=== PATIENT | male | born 1940 | race Caucasian/White ===

== ENCOUNTER 2020-07-14 13:33 | Inpatient (IN) | payer MEDICARE, BC ==
[~2020-07-14 13:33] MED LIST: Iopamidol-370 76% 500 ML 1 ML ONE
--- NOTE | 2020-07-14 14:47 | RAD ---
Chest AP view INDICATION: Shortness of breath and fever COMPARISON: 2 views of the chest dated July 14, 2020 FINDINGS: Lungs: Left lower lobe lung nodule appears stable. Mild left basilar atelectasis persists. Cardiac silhouette: Postoperative change consistent with prior sternotomy, CABG and left atrial appe ndage occlusion device is similar. Pulmonary vasculature: Normal Pleural spaces: There is a small left pleural effusion. Upper abdomen: No abnormality seen. Osseous structures: No acute osseous abnormality. Additional findings: None. IMPRESSION: Stable examination to the recent 2 views of the chest dated 07/14/2020. Recommendations remain the sa me as per the comparison exam.
[2020-07-14 15:02] LABS: Mean Corpuscular HGB CONC 32.8 g/dL (32.0-36.0); Mean Platelet Volume 7.8 fL (7.4-10.4); Platelet Count 110 thou/uL (130-400); RBC Distribution Width 12.1 % (11.5-14.5); Red Blood Cell (RBC) Count 3.95 mill/uL (4.70-6.10); White Blood Cell (WBC) Count 14.7 thou/uL (4.8-10.8)
[2020-07-14 15:16] LABS: Band 26 % (5-11); Lymphocytes 2 % (21-51); MDiff Complete? YES; Metamyelocyte 1 % (0-0); Monocytes 8 % (0-10); Neutrophil 62 % (42-75); Platelet Morphology Comment Appears Decreased; RBC Morphology Normal; Reactive Lymphocytes 1 % (0-10); Vacuoles SLIGHT
[2020-07-14 15:22] LABS: ALT (SGPT) 13 U/L (8-55); AST (SGOT) 18 U/L (5-34); Albumin 3.9 g/dL (3.4-4.8); Alkaline Phosphatase 65 U/L (40-110); Anion Gap 15 mmol/L (10-20); BUN (Urea Nitrogen) 22 mg/dL (8.4-25.7); Bilirubin, Total 0.7 mg/dL (0.2-1.2); Calc. Creatinine Clearance 0 mL/min (70-130); Calcium 9.3 mg/dL (7.8-10.44); Carbon Dioxide 25 mmol/L (23-31); Chloride 104 mmol/L (98-107); Globulin 2.5 g/dL (2.4-3.5); Glucose 110 mg/dL (83-110); Potassium 3.9 mmol/L (3.5-5.1); Protein, Total 6.4 g/dL (5.8-8.1); Sodium 140 mmol/L (136-145)
[2020-07-14] MEDS ORDERED: cefTRIAXone\\ROCEPHIN 2 GM VIAL ONE (16:03)
[2020-07-14] MEDS ORDERED: Acetaminophen 500 MG TAB ONE (16:03)
[2020-07-14] MEDS ORDERED: Azithromycin 500 MG VIAL ONE (16:03)
[2020-07-14] MEDS ORDERED: Vancomycin 1.5 GRAM/300 ML BAG 1.5 GM in Premix Bag 1 BAG IVPB SCH (19:30)
--- NOTE | 2020-07-14 19:46 | CT ---
CT ANGIO OF CHEST PERFORMED WITH INTRAVENOUS CONTRAST ENHANCEMENT AND 3D RECONSTRUCTIONS: 07/14/20 HISTORY: Shortness of breath. Cough. Mass noted on recent chest x-ray in the left lower lobe. There is a moderate left sided pleural effusion with left lower lobe atelectasis. Nodular density in the left baes corresponds to a pleural based mass along the anterior lateral chest wall measuring 2.5 cm in size. This is a solitary lesion. No bony destructive change is seen. No significant mediastinal or hilar adenopathy. There is good pulmonary opacification and no CT evidence for pulmonary embolus. Thoracic aorta is normal in caliber. Hypodensities within the liver, some of which are difficult to c haracterize but appears similar to the CT done in 2008 and probably represents cysts. IMPRESSION: 1. Pleural based mass along the left anterior lateral chest wall in the region of the lingula. T here is a moderate left pleural effusion noted. 2. No CT evidence for pulmonary embolus. 3. Small gallstones. POS: OLAMIDE
--- NOTE | 2020-07-14 20:24 | PDOC.BPN ---
- Brief Progress Note [id number] dictated
[2020-07-14 20:39] LABS: SARS-CoV-2 NAA Rapid Test Not Detected (NotDetected)
[2020-07-14] MEDS ORDERED: Vancomycin HCl 1 GM in Sodium Chloride 0.9% 250 ML 300 ML IVPB SCH (21:00)
--- NOTE | 2020-07-15 00:16 | HP ---
CHIEF COMPLAINT: Shortness of breath. HISTORY OF PRESENT ILLNESS: Mr. Green is an 79-year-old male with past medical history of COPD, coronary artery disease status post coronary artery bypass graft surgery, hypertension, CVA, hyperlipidemia, among others, presents to the emergency room with shortness of breath, worse with any exertion associated with fever and chills since yesterday. The patient has chronic back pain which has been worse. Workup in the emergency room: The patient had a sodium of 140, potassium 3.9, BUN is 22, creatinine 1.3. WBC 14.7, hemoglobin 13, platelets 110. Lactic acid 1.3. CTA of the chest was negative for pulmonary embolism, but it did show pleural- based mass along the left anterior chest wall in the region of the lingula. There is a moderate left pleural effusion noted. Septic workup done in the ED, started on IV antibiotics. The patient is being admitted to hospital for further management. PAST MEDICAL HISTORY: As mentioned above in history of present illness. PAST SURGICAL HISTORY: Coronary artery bypass graft surgery. SOCIAL HISTORY: The patient denies drinking or drug use. FAMILY HISTORY: Noncontributory. HOME MEDICATIONS: See home medication reconciliation form for updated medications. ALLERGIES: ALLERGIC TO ASPIRIN, IBUPROFEN. REVIEW OF SYSTEMS: Review of 14 systems negative except what is mentioned in history of present illness. PHYSICAL EXAMINATION: GENERAL: The patient is awake, alert, in moderate respiratory distress. VITAL SIGNS: Blood pressure is 144/60, respiratory rate is 24, pulse is 86, temperature is 98.5, oxygen saturation 96% on room air. HEAD AND NECK: Normocephalic, atraumatic. NECK: Supple. CHEST: Decreased air entry bilaterally. HEART: S1, S2. Regular. ABDOMEN: Soft, nontender. Bowel sounds present. NEUROLOGIC: Awake, alert, oriented. PSYCH: Unable to assess. EXTREMITIES: No clubbing, no cyanosis. GENITOURINARY: No suprapubic tenderness. No flank tenderness. LABORATORY DATA: BNP is 257. Otherwise, the rest of the labs as mentioned above in history of present illness. Troponin 0.01. CT of the chest as mentioned above in history of present illness. ASSESSMENT AND PLAN: 1. Sepsis. The patient was febrile, tachycardic, and had elevated WBC count. Source is unclear, still awaiting the urinalysis. 2. Chronic obstructive pulmonary disease with exacerbation. 3. Coronary artery disease with history of coronary artery bypass graft surgery. 4. Lung/pleural base mass. 5. Pleural effusion. 6. COVID 19 virus infection PLAN: 1. Admit. 2. Septic workup including cultures, urinalysis, to follow the results. 3. Oxygen to keep saturation more than 92%. 4. Bronchodilator scheduled as needed. 5. IV steroids. 6. To consult Pulmonary in a.m. for evaluation. Further recommendations regarding the CT findings, pleural base mass with moderate left pleural effusion. 7. Reconcile home medications. 8. DVT prophylaxis appropriate. 9. Expected length of stay, 2 midnights or more. Job ID: [id number] [facility]Carol
[2020-07-15 00:47] VITALS: BMI 17.5
[2020-07-15] MEDS: methylPREDNISolone Sod Succ 40 MG VIAL IVP SCH ×5 (02:03→20:20)
[2020-07-15] MEDS: Cefepime 1 GM in Sodium Chloride 0.9% 100 ML IVPB SCH ×4 (02:04→23:08)
[2020-07-15] MEDS ORDERED: Benzonatate 100 MG CAP PO PRN (07:42)
[2020-07-15] MEDS ORDERED: Cyclobenzaprine 10 MG TAB PO PRN (07:42)
--- NOTE | 2020-07-15 07:45 | PDOC.HOSPP ---
- Subjective Encounter Date: 07/15/20 Encounter Time: 10:15 Subjective: Patient reports some persistent cough and shortness of breath. No fever today but had chills yesterday. Left lower anterior chest with some soreness, hurts some with cough, but improved. - Objective Vital Signs & Weight: Vital Signs (12 hours) Temp Pulse Resp BP Pulse Ox 07/15/20 07:30 80 18 99 07/15/20 04:00 98.7 F 92 18 132/64 96 07/15/20 00:28 99 12 99 07/15/20 00:00 100.4 F H 95 20 153/63 H 99 Weight Weight 136 lb 10.986 oz Result Diagrams: 07/14/20 14:50 07/14/20 14:50 Hospitalist ROS - Review of Systems Constitutional: reports: chills. denies: fever Respiratory: reports: cough, shortness of breath, pleuritic pain Cardiovascular: denies: chest pain, palpitations Gastrointestinal: denies: nausea, vomiting, abdominal pain - Medication Medications: Active Medications Generic Name Dose Route Start Last Admin Trade Name Freq PRN Reason Stop Dose Admin Albuterol/Ipratropium 3 ml 07/15/20 01:00 07/15/20 07:30 Ipratropium/Albuterol Sulfate 3 Ml Neb NEB 3 ml [id number] TRACEY Administration Cefepime HCl 1 gm/ Sodium 100 mls @ 200 mls/hr 07/14/20 22:00 07/15/20 06:58 Chloride IVPB 100 mls Q8HR TRACEY Administration Methylprednisolone Sodium Succinate 40 mg 07/14/20 20:00 07/15/20 02:50 Methylprednisolone Sod Succ 40 Mg Vial IVP 40 mg 0200,0800,1400,2000 TRACEY Administration - Exam General Appearance: NAD, awake alert ENT: moist mucosa Heart: RRR, no murmur, no gallops, no rubs Respiratory: CTAB, no wheezes, no rales, no ronchi Gastrointestinal: soft, non-tender, non-distended, normal bowel sounds Psychiatric: normal affect, normal behavior, A&O x 3 Hosp A/P (1) Sepsis Code(s): A41.9 - SEPSIS, UNSPECIFIED ORGANISM Status: Acute (2) COPD exacerbation Code(s): J44.1 - CHRONIC OBSTRUCTIVE PULMONARY DISEASE W (ACUTE) EXACERBATION Status: Acute (3) Mass of left lung Code(s): R91.8 - OTHER NONSPECIFIC ABNORMAL FINDING OF LUNG FIELD Status: Acute (4) CAD (coronary artery disease) Code(s): I25.10 - ATHSCL HEART DISEASE OF [place] CORONARY ARTERY W/O ANG PCTRS Status: Chronic Plan: hx of CABG (5) HTN (hypertension) Code(s): I10 - ESSENTIAL (PRIMARY) HYPERTENSION Status: Chronic (6) History of CVA (cerebrovascular accident) Code(s): Z86.73 - PRSNL HX OF TIA (TIA), AND CEREB INFRC W/O RESID DEFICITS Status: Chronic Plan: residual right sided weakness (7) HLD (hyperlipidemia) Code(s): E78.5 - HYPERLIPIDEMIA, UNSPECIFIED Status: Chronic (8) Chronic a-fib Code(s): I48.20 - CHRONIC ATRIAL FIBRILLATION, UNSPECIFIED Status: Chronic Plan: on Eliquis - Plan On Cefepime and Azithromycin since 07/14/2020. Nebs prn. Pulmonology consult for lung mass, possibly fluid from pneumonia but will need followup, plan per Dr. Valenzuela's note is to try antibiotics for now. Blood cultures pending. DVT Proph: Eliquis GI Proph: Pepcijosseline
[2020-07-15 08:12] LABS: Bacteria/HPF 2+ HPF (None Seen); Bilirubin Negative (Negative); Blood, Urine 3+ (Negative); Clarity Clear (Clear); Glucose, Urine (Dipstick) Normal (Negative); Ketone, Urine 40 mg/dL (Negative); Leukocyte 250 Leu/uL (Negative); Nitrite Negative (Negative); Protein, Urine (Dipstick) 20 mg/dL (Neg-Trace); RBC/HPF Greater than 50 HPF (0-3); Specific Gravity, Urine 1.034 (1.002-1.036); Squamous Epithelial None Seen HPF (0-3); Urobilinogen Normal mg/dL (Less than 2); WBC/HPF Greater than 50 HPF (0-3)
[2020-07-15 08:19] LABS: Urine Culture Reflex Yes Yes
[2020-07-15] MEDS: Tamsulosin HCl 0.4 MG CAP PO SCH (08:48)
[2020-07-15] MEDS: guaiFENesin ER 600 MG TAB PO SCH ×2 (08:49→20:21)
[2020-07-15] MEDS: Apixaban 2.5 MG TAB PO SCH ×2 (08:49→20:21)
[2020-07-15] MEDS ORDERED: Non-Formulary Item 1 EACH (Cholecalciferol (Vitamin D3) [Vitamin D3] 2,000 UNIT Capsule) PO SCH (09:00)
[2020-07-15] MEDS ORDERED: Non-Formulary Item 1 EACH (Vitamin B Complex [B Complex] 1 TABLET Tablet) PO SCH (09:00)
[2020-07-15] MEDS ORDERED: Famotidine 20 MG TAB PO SCH (09:00)
[2020-07-15] MEDS ORDERED: Non-Formulary Item 1 EACH (Budesonide/Formoterol Fumarate [Budesonide-Formoterol 160-4.5] IH SCH (09:00)
[2020-07-15] MEDS: Cholecalciferol 1,000 UNITS (25 MCG) TAB PO SCH (10:12)
[2020-07-15] MEDS: Stress 600 With Zinc 1 TAB PO SCH (10:13)
--- NOTE | 2020-07-15 10:21 | CON ---
DATE OF CONSULTATION: HISTORY OF PRESENT ILLNESS: Mason Green is an 79-year-old gentleman who recently moved here from [place], [place], to stay with the son over here. Retired control systems eng. He smoked briefly, but quit smoking at 64. About a year ago, he had a bypass surgery done in [place], [place]. It was complicated by congestive heart failure. He said he had a lot of pleural effusion. They were to tap his chest, but it got better by itself. He now presents to the hospital with several-day history of cough, congestion, chills, and shortness of breath. His coronavirus test was negative. PAST MEDICAL HISTORY: Pertinent for chronic bronchitis, COPD, previous CVA, hypertension, right-sided weakness, history of chronic atrial fibrillation, rhinitis, BPH. PAST SURGICAL HISTORY: Including a bypass surgery. CHRONIC MEDICATIONS: From home include, 1. Albuterol inhaler. 2. Symbicort. 3. Eliquis 2.5. 4. Nasal spray. 5. Flomax 0.4. 6. Singulair 10. 7. Flexeril 10. ALLERGIES: IBUPROFEN. REVIEW OF SYSTEMS: Ten-point negative. PHYSICAL EXAMINATION: VITAL SIGNS: His temperature is 98, pulse 97, respiratory rate 20, saturations 96% on room air, blood pressure 130/59. GENERAL: Clinically, he is better. CHEST: Decreased breath sounds at base. No wheezing. CARDIAC: Normal S1 and S2. No gallops. ABDOMEN: Soft. LABORATORY DATA: White count 14,000; H and H 13 and 39; platelet count 110, slight left shift. So far, cultures are negative. X-ray shows a small pleural effusion, some pleural-based density that was seen on the CAT scan. ASSESSMENT: 1. Small pleural effusion. 2. Pleural-based mass, left chest. 3. Recent coronary artery bypass grafting. 4. Febrile illness. 5. Azotemia. 6. Benign prostatic hypertrophy. PLAN: The patient is on Maxipime, Zithromax, and steroids. I will continue along with the neb treatment. Obtain sputum for culture. Regarding the pleural effusion, I think this may be chronic in nature, probably secondary to his previous bypass. I would hold off any thoracentesis at this stage, unless it gets larger. Once he is symptomatically improved, I would switch him over to oral antibiotics or prednisone. We will follow. Consultation note, 70 minutes, 50% direct patient care. Job ID: [id number]
--- NOTE | 2020-07-15 13:53 | PQF ---
CLINICAL DOCUMENTATION CLARIFICATION FORM: Dear Dr. GEORGE REARDON Date: 07-15-20 Please exercise your independent, professional judgment in responding to the clarification form. Clinical indicators are provided on the bottom of this form for your review. Please check appropriate box(es) to clarify if the following diagnosis has been ruled in our ruled out: PNEUMONIA [ ] Ruled in diagnosis [ ] Continue to treat [ ] Resolved [ ] Ruled out diagnosis [ X ] Unable to determine In addition, please specify: Present on Admission (POA): [ X ] Yes [ ] No [ ] Unable to determine For continuity of documentation, please document condition throughout progress notes and discharge summary. Thank You. To be completed by CDI/Coding staff for physician review: CLINICAL INDICATORS - SIGNS / SYMPTOMS / LABS / RESULTS AND LOCATION IN MR: PN DR. REARDON 07-15-20: POSSIBLY FLUIDS FROM PNEUMONIA BUT WILL NEED FOLLOWUP, PLAN PER DR. MITCHELL NOTE IS TO TRY ANTIBIOTICS FOR NOW. TEMP: 07-15-20: 100.4 WBC: 07-14-20: 14.7 RISK FACTORS / RESULTS AND LOCATION IN MR: PN DR. REARDON 07-15-20: POSSIBLY FLUIDS FROM PNEUMONIA BUT WILL NEED FOLLOWUP, PLAN PER DR. MITCHELL NOTE IS TO TRY ANTIBIOTICS FOR NOW. TREATMENTS / RESULTS AND LOCATION IN MR: PULM CONSULT 07-15-20 MAR: 07-14-20: CEFEPIME IV, ZITHROMAX, SOLUMEDROL CDS Signature: Galilea Armando Phone #: [phone] Date: 07-14-10 This is a permanent part of the Medical Record [facility]
[2020-07-15] MEDS: Azithromycin 500 MG in Sodium Chloride 0.9% 250 ML 250 ML IVPB SCH (16:55)
[2020-07-15] MEDS: Mometasone 200 MCG/Formoterol 5 MCG 120 PUFF INHALER INH SCH (19:29)
[2020-07-15] MEDS: Montelukast Sodium 10 mg Tablet PO SCH (20:21)
[2020-07-15] MEDS ORDERED: FLU VACC QS2020-21(65YR UP)/PF 240 MCG/0.7 ML SYRINGE IM ONE (21:00)
[2020-07-16] MEDS: methylPREDNISolone Sod Succ 40 MG VIAL IVP SCH ×4 (02:29→19:58)
[2020-07-16] MEDS: Cefepime 1 GM in Sodium Chloride 0.9% 100 ML IVPB SCH ×3 (05:08→22:34)
[2020-07-16] MEDS: Mometasone 200 MCG/Formoterol 5 MCG 120 PUFF INHALER INH SCH ×2 (07:13→18:43)
[2020-07-16] MEDS: Stress 600 With Zinc 1 TAB PO SCH (08:08)
[2020-07-16] MEDS: Cholecalciferol 1,000 UNITS (25 MCG) TAB PO SCH (08:08)
[2020-07-16] MEDS: Tamsulosin HCl 0.4 MG CAP PO SCH (08:08)
[2020-07-16] MEDS: guaiFENesin ER 600 MG TAB PO SCH ×2 (08:08→19:59)
[2020-07-16] MEDS: Famotidine 20 MG TAB PO SCH (08:08)
[2020-07-16] MEDS: Apixaban 2.5 MG TAB PO SCH ×2 (08:09→19:59)
[2020-07-16] MEDS: Ipratropium Bromide 0.06% Nasal Inhaler 15ml EA NARE SCH ×4 (08:10→18:42)
--- NOTE | 2020-07-16 09:56 | PDOC.HOSPP ---
- Subjective Encounter Date: 07/16/20 Encounter Time: 09:55 Subjective: f/u for COPD exacerbation/L pleural effusion receiving Zithromax/Cefepime/Duonebs/Dulera/Singulair on RA. States feeling better overall. Less SOB. - Objective Vital Signs & Weight: Vital Signs (12 hours) Temp Pulse Resp BP BP Pulse Ox 07/16/20 08:28 98.1 F 83 18 126/44 L 96 07/16/20 07:12 85 16 98 07/16/20 04:00 97.8 F 86 20 106/57 L 98 07/16/20 00:08 92 12 97 Weight Admit Weight 136 lb 11.2 oz Weight 136 lb 10.986 oz I&O: 07/15/20 07/16/20 07/17/20 06:59 06:59 06:59 Intake Total 1970 Output Total 600 Balance 1370 Result Diagrams: 07/14/20 14:50 07/14/20 14:50 Additional Labs: Microbiology 07/15/20 14:30 Sputum Respiratory Culture - Final 07/14/20 15:30 Venous blood - Right Arm Blood Culture - Preliminary Specimen has been received and culture in progress. No Growth to date. 07/14/20 15:30 Venous blood - Left Arm Blood Culture - Preliminary Specimen has been received and culture in progress. No Growth to date. Laboratory Tests 07/14/20 07/14/20 07/14/20 14:50 14:50 19:18 Lactic Acid 1.3 B-Natriuretic Peptide 257.2 H Influenza A RNA INAAT Not Detected Influenza B RNA INAAT Not Detected SARS-CoV-2 Rap RNA(RT-PCR) Not Detected Microbiology 07/14/20 13:10 Urine clean catch Urine Culture - Final Radiology Reviewed by me: Yes (CTA chest - L pleural based mass with effusion) Hospitalist ROS - Medication Medications: Active Medications Generic Name Dose Route Start Last Admin Trade Name Freq PRN Reason Stop Dose Admin Albuterol/Ipratropium 3 ml 07/15/20 01:00 07/16/20 07:12 Ipratropium/Albuterol Sulfate 3 Ml Neb NEB 3 ml [id number] TRACEY Administration Apixaban 2.5 mg 07/15/20 09:00 07/16/20 08:09 Apixaban 2.5 Mg Tab PO 2.5 mg BID TRACEY Administration Cholecalciferol 2,000 units 07/15/20 09:00 07/16/20 08:08 Cholecalciferol 1,000 Units (25 Mcg) Tab PO 2,000 units DAILY TRACEY Administration Famotidine 20 mg 07/16/20 09:00 07/16/20 08:08 Famotidine 20 Mg Tab PO 20 mg DAILY TRACEY Administration Guaifenesin 600 mg 07/15/20 09:00 07/16/20 08:08 Guaifenesin Er 600 Mg Tab PO 600 mg BID TRCAEY Administration Cefepime HCl 1 gm/ Sodium 100 mls @ 200 mls/hr 07/14/20 22:00 07/16/20 05:08 Chloride IVPB 100 mls Q8HR TRACEY Administration Azithromycin 500 mg/ Sodium 250 mls @ 250 mls/hr 07/15/20 16:00 07/15/20 16:55 Chloride IVPB 250 mls 1600 TRACEY Administration Ipratropium Gregory 0 ml 07/15/20 12:30 07/16/20 08:11 Ipratropium Gregory 0.06% Nasal Inhaler 15ml EA NARE Not Given TID-RT [facility] Methylprednisolone Sodium Succinate 40 mg 07/14/20 20:00 07/16/20 08:09 Methylprednisolone Sod Succ 40 Mg Vial IVP 40 mg 0200,0800,1400,2000 TRACEY Administration Mometasone Furoate/Formoterol Fumar 2 puff 07/15/20 18:30 07/16/20 07:13 Mometasone 200 Mcg/Formoterol 5 Mcg 120 Puff Inhaler INH 2 puff BID-RT TRACEY Administration Montelukast Sodium 10 mg 07/15/20 21:00 07/15/20 20:21 Montelukast Sodium 10 Mg Tablet PO 10 mg QPM TRACEY Administration Multivitamins/Zinc 1 tab 07/15/20 09:00 07/16/20 08:08 Stress 600 With Zinc 1 Tab PO 1 tab DAILY TRACEY Administration Tamsulosin HCl 0.4 mg 07/15/20 09:00 07/16/20 08:08 Tamsulosin Hcl 0.4 Mg Cap PO 0.4 mg DAILY TRACEY Administration - Exam General Appearance: NAD, awake alert Eye: PERRL, anicteric sclera ENT: normocephalic atraumatic, no oropharyngeal lesions Neck: supple, symmetric, no JVD, no thyromegaly, no lymphadenopathy Heart: RRR, no gallops, no rubs, normal peripheral pulses Heart - other findings: S1, S2 Respiratory: no wheezes, no tachypnea Respiratory - other findings: diminished in L base, occ rhonchi Gastrointestinal: soft, non-tender, non-distended, normal bowel sounds, no palpable masses Extremities: no cyanosis, no clubbing, no edema Skin: normal turgor Neurological: cranial nerve grossly intact, no new deficit Musculoskeletal: normal tone, normal strength Psychiatric: normal affect, A&O x 3 Hosp A/P (1) Sepsis Code(s): A41.9 - SEPSIS, UNSPECIFIED ORGANISM Status: Acute Plan: Suspected due to LLL infiltrate/?PNA with parapneumonic effusion, continue Cefepime/Zithromax, resolved (2) COPD exacerbation Code(s): J44.1 - CHRONIC OBSTRUCTIVE PULMONARY DISEASE W (ACUTE) EXACERBATION Status: Acute Plan: Continue Solumedrol/Duonebs/Cefepime/Zithromax/Dulera/Singulair, stable (3) Mass of left lung Code(s): R91.8 - OTHER NONSPECIFIC ABNORMAL FINDING OF LUNG FIELD Status: Acute Plan: ? mass vs infectious process, continue IV abx, Pulmonology consulted (4) CAD (coronary artery disease) Code(s): I25.10 - ATHSCL HEART DISEASE OF [place] CORONARY ARTERY W/O ANG PCTRS Status: Chronic Plan: Continue ASA/Eliquis (5) Chronic a-fib Code(s): I48.20 - CHRONIC ATRIAL FIBRILLATION, UNSPECIFIED Status: Chronic (6) HTN (hypertension) Code(s): I10 - ESSENTIAL (PRIMARY) HYPERTENSION Status: Chronic Qualifiers: Hypertension type: essential hypertension Qualified Code(s): I10 - Es sential (primary) hypertension - Plan continue antibiotics, high school social studies tutor, respiratory therapy, out of bed/ambulate, DVT proph w/SCDs Stable overall Continue Cefepime/Zithromax Continue Solumedrol another 24h OOB/ambulate AM lab: BMP, CBC Likely home in 24h
[2020-07-16] MEDS: Azithromycin 500 MG in Sodium Chloride 0.9% 250 ML 250 ML IVPB SCH (15:00)
[2020-07-16] MEDS ORDERED: Acetaminophen 500 MG TAB PO PRN (18:55)
[2020-07-16] MEDS: diphenhydrAMINE 25 MG CAP PO SCH (19:59)
[2020-07-16] MEDS: Montelukast Sodium 10 mg Tablet PO SCH (19:59)
[2020-07-17] MEDS: methylPREDNISolone Sod Succ 40 MG VIAL IVP SCH ×2 (02:42→08:44)
[2020-07-17] MEDS: Cefepime 1 GM in Sodium Chloride 0.9% 100 ML IVPB SCH (05:18)
[2020-07-17 05:56] LABS: #Lymphocytes 0.3 thou/uL (1.20-3.40); #Monocytes 0.3 thou/uL (0.11-0.59); #Neutrophils 8.8 thou/uL (1.40-6.50); %Lymphocytes 2.8 % (21.0-51.0); %Monocytes 2.6 % (0.0-10.0); %Neutrophils 94.5 % (42.0-75.0); Hemoglobin 11.2 g/dL (14.0-18.0); Mean Corpuscular HGB CONC 33.4 g/dL (32.0-36.0); Mean Corpuscular Hemoglobin 33.1 pg (27.0-31.0); Mean Corpuscular Volume 99.2 fL (78.0-98.0); Mean Platelet Volume 8.3 fL (7.4-10.4); Platelet Count 97 thou/uL (130-400); RBC Distribution Width 12.4 % (11.5-14.5); Red Blood Cell (RBC) Count 3.37 mill/uL (4.70-6.10); White Blood Cell (WBC) Count 9.3 thou/uL (4.8-10.8)
[2020-07-17 06:11] LABS: Anion Gap 13 mmol/L (10-20); BUN (Urea Nitrogen) 29 mg/dL (8.4-25.7); Calc. Creatinine Clearance 51 mL/min (70-130); Calcium 8.3 mg/dL (7.8-10.44); Carbon Dioxide 19 mmol/L (23-31); Chloride 111 mmol/L (98-107); Glucose 150 mg/dL (83-110); Potassium 3.9 mmol/L (3.5-5.1); Sodium 139 mmol/L (136-145)
[2020-07-17] MEDS: Mometasone 200 MCG/Formoterol 5 MCG 120 PUFF INHALER INH SCH (07:29)
[2020-07-17 07:54] VITALS: BP 108/50; TEMP 97.3
[2020-07-17] MEDS: diphenhydrAMINE 25 MG CAP PO SCH (08:43)
[2020-07-17] MEDS: Stress 600 With Zinc 1 TAB PO SCH (08:44)
[2020-07-17] MEDS: Ipratropium Bromide 0.06% Nasal Inhaler 15ml EA NARE SCH (08:44)
[2020-07-17] MEDS: guaiFENesin ER 600 MG TAB PO SCH (08:44)
[2020-07-17] MEDS: Famotidine 20 MG TAB PO SCH (08:44)
[2020-07-17] MEDS: Tamsulosin HCl 0.4 MG CAP PO SCH (08:44)
[2020-07-17] MEDS: Apixaban 2.5 MG TAB PO SCH (08:44)
[2020-07-17] MEDS: Cholecalciferol 1,000 UNITS (25 MCG) TAB PO SCH (08:44)
[2020-07-17] MEDS ORDERED: Aspirin 81 mg Enteric Coated Tablet PO SCH (09:00)
--- NOTE | 2020-07-18 09:00 | DIS ---
DATE OF ADMISSION: 07/15/2020 DATE OF DISCHARGE: 07/17/2020 DISCHARGE DIAGNOSES: 1. Chronic obstructive pulmonary disease exacerbation, suspected resolving. 2. Mass of the left lung, suspected. 3. Sepsis, questionable left lower lobe infiltrate versus mass. 4. Coronary artery disease, chronic and stable. 5. Hypertension, stable. 6. Chronic atrial fibrillation, on chronic anticoagulation with Eliquis. CONSULTATIONS: Dr. Valenzuela with Pulmonology Service. PERTINENT LABORATORY AND X-RAY FINDINGS: Creatinine ranged between 1.02 to 1.34. Lactic acid level 1.3. BNP 257. CBC showed a white blood cell count ranging between 9.3 to 14.7, hemoglobin ranged between 11.2 to 13.0, platelet count ranged between 97 to 110. Influenza A and B negative on 07/14/2020. COVID-19 PCR not detected on 07/14/2020. Blood cultures x2 dated 07/14/2020, showed no growth at 48 hours. Respiratory culture showed saliva. Portable chest x-ray dated 07/14/2020, showed left lower lobe lung nodule. Mild left basilar atelectasis. CT angiogram of the chest dated 07/14/2020, showed no evidence for pulmonary embolus. Pleural base mass along the left anterolateral chest wall in the region of the lingula. Moderate left pleural effusion. HOSPITAL COURSE: The patient was initially admitted after presenting with increased shortness of breath in the context of chronic obstructive pulmonary disease. The patient was placed on IV Solu-Medrol and given bronchodilator therapy with DuoNeb. The patient was also placed on azithromycin and cefepime for suspected infectious process. Chest imaging did show evidence of a left pleural based mass of unclear significance with associated moderate left pleural effusion. The patient was evaluated by the Pulmonology Service with recommendations to treat underlying infectious process and monitor clinical response. The patient rapidly clinically improved with general pulmonary supportive management including Solu-Medrol. The patient received bronchodilator therapy and overall remained clinically stable. The patient did not require oxygen supplementation and overall was clinically stable without fever. I have examined the patient at the time of discharge and discussed followup instructions. The patient verbalizes understanding and agreement, ready for discharge on 07/17/2020. DISCHARGE MEDICATIONS: 1. Azithromycin 500 mg p.o. daily x7 days. 2. Prednisone 20 mg two tablets p.o. daily x3 days, followed by one tablet p.o. daily x3 days, followed by half a tablet p.o. daily x3 days. 3. Vitamin D3 of 2000 units p.o. daily. 4. Singulair 10 mg p.o. at bedtime. 5. ProAir Digihaler 90 mcg inhaled b.i.d. 6. Pepcid 20 mg p.o. b.i.d. 7. Mucinex 600 mg p.o. b.i.d. 8. Flomax 0.4 mg p.o. daily. 9. Flexeril 10 mg p.o. t.i.d. p.r.n. 10. Eliquis 2.5 mg p.o. b.i.d. 11. Budesonide/formoterol fumarate 10.2 g inhaled b.i.d. 12. Benadryl 50 mg p.o. b.i.d. 13. Vitamin B complex one tablet p.o. daily. 14. Atrovent 0.06% nasal spray 2 sprays in each naris t.i.d. 15. Enteric-coated aspirin 81 mg p.o. daily. FOLLOWUP: The patient may follow up with his primary care provider, Dr. Luis Eduardo Powell. The patient may follow up with Dr. Valenzuela with Pulmonology Service within 2 weeks. CONDITION ON DISCHARGE: Stable. ACTIVITY: Ad-elder. DIET: Heart healthy. CODE STATUS: Full. DISPOSITION: To home, 07/17/2020. TIME SPENT: Total time preparing and coordinating discharge is 35 minutes. Job ID: [id number]
== END 2020-07-17 11:25 | disposition home or self-care (01) | DRG 871 ==
LOC: ERS 13:33 → T4-A 18:43 → OBSVTOIN 07-15 07:41
PROVIDERS: ADMIT Internal Medicine; ATTEND Emergency Medicine
DX: A41.9 Sepsis, unspecified organism (principal); J18.9 Pneumonia, unspecified organism; J44.1 Chronic obstructive pulmonary disease with (acute) exacerbation; B37.0 Candidal stomatitis; I48.20 Chronic atrial fibrillation, unspecified; J90 Pleural effusion, not elsewhere classified; J98.11 Atelectasis; I10 Essential (primary) hypertension; I25.10 Atherosclerotic heart disease of native coronary artery without angina pectoris; Z88.6 Allergy status to analgesic agent; N40.0 Benign prostatic hyperplasia without lower urinary tract symptoms; Z86.73 Personal history of transient ischemic attack (TIA), and cerebral infarction without residual deficits; E78.5 Hyperlipidemia, unspecified; Z95.1 Presence of aortocoronary bypass graft; Z79.82 Long term (current) use of aspirin; Z79.01 Long term (current) use of anticoagulants; Z79.899 Other long term (current) drug therapy; Z79.51 Long term (current) use of inhaled steroids; R91.8 Other nonspecific abnormal finding of lung field; Z20.828 Contact with and (suspected) exposure to other viral communicable diseases
CPT/HCPCS: 0240U; 36415; 71045; 71275; 80048; 80053; 81001; 83605; 83880; 84484; 85025; 87040; 87070; 87086; 87205; 87635; 90471; 90662; 90732; 93005; 94640; 96365; 96366; 96367; 96375; 96376; G0008; G0009; G0378; J0456; J0692; J0696; J2920; J3370; J3490; J7050; J7620; Q0163; Q9967; U0003

== ENCOUNTER 2020-10-20 12:19 | Outpatient (CLI) | payer MEDICARE, BC | END 2020-10-20 12:20 | disposition home or self-care (01) | LOC: BICRAD 12:19 | PROVIDERS: ATTEND Internal Medicine Pulmonary Disease | DX: R06.00 Dyspnea, unspecified (principal) | CPT/HCPCS: 71046 ==

== ENCOUNTER 2021-12-27 17:19 | Observation (INO) | payer MEDICARE, BC ==
[2021-12-27 17:45] LABS: #Eosinphils 0.1 thou/uL (0.0-0.7); #Lymphocytes 1.6 thou/uL (1.20-3.40); #Monocytes 0.6 thou/uL (0.11-0.59); #Neutrophils 5.3 thou/uL (1.40-6.50); %Basophils 0.1 % (0.0-1.0); %Eosinophils 1.9 % (0.0-10.0); %Lymphocytes 20.5 % (21.0-51.0); %Neutrophils 69.4 % (42.0-75.0); Hemoglobin 13.8 g/dL (14.0-18.0); Mean Corpuscular HGB CONC 32.1 g/dL (32.0-36.0); Mean Corpuscular Hemoglobin 32.4 pg (27.0-31.0); Mean Platelet Volume 8.3 fL (7.4-10.4); Platelet Count 142 thou/uL (130-400); Red Blood Cell (RBC) Count 4.27 mill/uL (4.70-6.10); White Blood Cell (WBC) Count 7.6 thou/uL (4.8-10.8)
[2021-12-27 18:09] LABS: ALT (SGPT) Less than 7 U/L (8-55); AST (SGOT) 13 U/L (5-34); Alkaline Phosphatase 75 U/L (40-110); Anion Gap 13 mmol/L (10-20); BUN (Urea Nitrogen) 14 mg/dL (8.4-25.7); Bilirubin, Total 0.7 mg/dL (0.2-1.2); Calc. Creatinine Clearance 0 mL/min (70-130); Calcium 9.3 mg/dL (7.8-10.44); Carbon Dioxide 25 mmol/L (23-31); Chloride 106 mmol/L (98-107); Globulin 3.1 g/dL (2.4-3.5); Glucose 76 mg/dL (83-110); Potassium 3.8 mmol/L (3.5-5.1); Protein, Total 7.1 g/dL (5.8-8.1); Sodium 140 mmol/L (136-145)
[2021-12-27 20:41] VITALS: BMI 19.1
[2021-12-27] MEDS ORDERED: Nitroglycerin 0.4 MG TAB (25 Tab Bottle) SL PRN (21:01)
[2021-12-27] MEDS ORDERED: Ondansetron PF 4 MG/2 ML Vial IVP PRN (21:01)
[2021-12-27] MEDS ORDERED: Acetaminophen 325 MG TAB PO PRN (21:01)
[2021-12-27] MEDS ORDERED: Acetaminophen 650 MG Suppository PR PRN (21:01)
[2021-12-27] MEDS ORDERED: Ondansetron ODT 4 MG TAB PO PRN (21:01)
[2021-12-27] MEDS ORDERED: Benzonatate 100 MG CAP PO PRN (21:06)
[2021-12-27 21:25] LABS: Troponin I Less than 0.010 ng/mL (< 0.028)
[2021-12-28 00:13] LABS: Troponin I Less than 0.010 ng/mL (< 0.028)
[2021-12-28 05:48] LABS: #Eosinphils 0.2 thou/uL (0.0-0.7); #Lymphocytes 1.5 thou/uL (1.20-3.40); #Monocytes 0.6 thou/uL (0.11-0.59); #Neutrophils 3.5 thou/uL (1.40-6.50); %Basophils 0.2 % (0.0-1.0); %Eosinophils 2.8 % (0.0-10.0); %Lymphocytes 25.4 % (21.0-51.0); %Neutrophils 60.6 % (42.0-75.0); Hemoglobin 12.3 g/dL (14.0-18.0); Mean Corpuscular HGB CONC 32.5 g/dL (32.0-36.0); Mean Corpuscular Hemoglobin 32.5 pg (27.0-31.0); Mean Platelet Volume 8.5 fL (7.4-10.4); Platelet Count 123 thou/uL (130-400); RBC Distribution Width 13.1 % (11.5-14.5); Red Blood Cell (RBC) Count 3.77 mill/uL (4.70-6.10); White Blood Cell (WBC) Count 5.7 thou/uL (4.8-10.8)
[2021-12-28 06:12] LABS: Anion Gap 10 mmol/L (10-20); BUN (Urea Nitrogen) 16 mg/dL (8.4-25.7); Calc. Creatinine Clearance 49 mL/min (70-130); Calcium 8.9 mg/dL (7.8-10.44); Carbon Dioxide 24 mmol/L (23-31); Chloride 110 mmol/L (98-107); Glucose 87 mg/dL (83-110); Sodium 140 mmol/L (136-145)
[2021-12-28] MEDS: Mometasone 100 MCG/PUFF (1 INHALER) INH SCH ×2 (06:41→19:08)
[2021-12-28] MEDS: Famotidine 20 MG TAB PO SCH ×2 (08:42→21:51)
[2021-12-28] MEDS: Ipratropium Bromide 0.06% Nasal Inhaler 15ml EA NARE SCH ×3 (08:46→21:51)
[2021-12-28] MEDS: Tamsulosin HCl 0.4 MG CAP PO SCH (08:50)
[2021-12-28] MEDS ORDERED: Aspirin Chewable 81 MG TAB PO SCH (09:00)
[2021-12-28 14:19] LABS: SARS-CoV-2 PCR by NAA Not Detected (NotDetected)
[2021-12-29] MEDS: Mometasone 100 MCG/PUFF (1 INHALER) INH SCH (06:35)
[2021-12-29] MEDS: Famotidine 20 MG TAB PO SCH (08:46)
[2021-12-29] MEDS: Ipratropium Bromide 0.06% Nasal Inhaler 15ml EA NARE SCH (08:47)
[2021-12-29] MEDS: Tamsulosin HCl 0.4 MG CAP PO SCH (08:52)
[2021-12-29] MEDS ORDERED: Atorvastatin Calcium 20 MG TAB PO SCH (09:00)
[2021-12-29 11:34] VITALS: BP 138/64; TEMP 97.3
== END 2021-12-29 15:23 | disposition home or self-care (01) ==
LOC: ERS 17:19 → 2SW 18:38
PROVIDERS: ADMIT Internal Medicine; ATTEND Internal Medicine
DX: R07.89 Other chest pain (principal); I48.0 Paroxysmal atrial fibrillation; J44.9 Chronic obstructive pulmonary disease, unspecified; R91.1 Solitary pulmonary nodule; D53.9 Nutritional anemia, unspecified; J90 Pleural effusion, not elsewhere classified; I25.10 Atherosclerotic heart disease of native coronary artery without angina pectoris; I11.9 Hypertensive heart disease without heart failure; E78.5 Hyperlipidemia, unspecified; K80.20 Calculus of gallbladder without cholecystitis without obstruction; I08.1 Rheumatic disorders of both mitral and tricuspid valves; Z86.73 Personal history of transient ischemic attack (TIA), and cerebral infarction without residual deficits; Z79.01 Long term (current) use of anticoagulants; Z79.899 Other long term (current) drug therapy; Z88.6 Allergy status to analgesic agent; Z88.8 Allergy status to other drugs, medicaments and biological substances; Z95.1 Presence of aortocoronary bypass graft; Z95.818 Presence of other cardiac implants and grafts; Z20.822 Contact with and (suspected) exposure to COVID-19
CPT/HCPCS: 71045; 71275; 80048; 80053; 83880; 84484 ×2; 85025 ×2; 93005; 93306; 94640 ×3; 94760; 99285; U0003; U0005; 36415; G0378; J7620; Q9967

== ENCOUNTER 2022-04-12 18:31 | Observation (INO) | payer MEDICARE, BC ==
[2022-04-12 19:38] LABS: #Eosinphils 0.1 thou/uL (0.0-0.7); #Lymphocytes 1.3 thou/uL (1.20-3.40); #Monocytes 0.7 thou/uL (0.11-0.59); #Neutrophils 3.6 thou/uL (1.40-6.50); %Basophils 0.6 % (0.0-1.0); %Eosinophils 2.4 % (0.0-10.0); %Monocytes 11.4 % (0.0-10.0); %Neutrophils 63.6 % (42.0-75.0); Hemoglobin 12.2 g/dL (14.0-18.0); Mean Corpuscular Hemoglobin 33.5 pg (27.0-31.0); Mean Platelet Volume 7.5 fL (7.4-10.4); Platelet Count 137 thou/uL (130-400); RBC Distribution Width 12.5 % (11.5-14.5); Red Blood Cell (RBC) Count 3.64 mill/uL (4.70-6.10); White Blood Cell (WBC) Count 5.7 thou/uL (4.8-10.8)
[2022-04-12 19:51] LABS: ALT (SGPT) Less than 7 U/L (8-55); AST (SGOT) 10 U/L (5-34); Acetaminophen Less than 10.0 mcg/mL (10.0-30.0); Albumin 3.7 g/dL (3.4-4.8); Alcohol Less than 10 mg/dL (Less than 10); Alkaline Phosphatase 72 U/L (40-110); Anion Gap 14 mmol/L (10-20); BUN (Urea Nitrogen) 19 mg/dL (8.4-25.7); Bilirubin, Total 0.6 mg/dL (0.2-1.2); CK (CPK) 26 U/L (30-200); Calc. Creatinine Clearance 0 mL/min (70-130); Calcium 9.4 mg/dL (7.8-10.44); Carbon Dioxide 24 mmol/L (23-31); Chloride 108 mmol/L (98-107); Estimated GFR 69; Globulin 2.7 g/dL (2.4-3.5); Glucose 87 mg/dL (83-110); Potassium 4.1 mmol/L (3.5-5.1); Protein, Total 6.4 g/dL (5.8-8.1); Salicylate Less than 8.0 mg/dL (15.0-30.0); Sodium 142 mmol/L (136-145)
[2022-04-12] MEDS ORDERED: Aspirin Chewable 81 MG TAB ONE (20:09)
[2022-04-12 21:55] LABS: SARS-CoV-2 NAA Rapid Test Not Detected (NotDetected)
[2022-04-12] MEDS ORDERED: Acetaminophen 325 MG TAB PO PRN (22:04)
[2022-04-13 01:52] VITALS: BMI 19.6
[2022-04-13 05:05] LABS: #Eosinphils 0.1 thou/uL (0.0-0.7); #Lymphocytes 1.1 thou/uL (1.20-3.40); #Monocytes 0.6 thou/uL (0.11-0.59); #Neutrophils 2.7 thou/uL (1.40-6.50); %Basophils 0.2 % (0.0-1.0); %Eosinophils 3.3 % (0.0-10.0); %Lymphocytes 24.4 % (21.0-51.0); %Neutrophils 58.1 % (42.0-75.0); Hemoglobin 11.4 g/dL (14.0-18.0); Mean Corpuscular HGB CONC 33.2 g/dL (32.0-36.0); Mean Corpuscular Hemoglobin 33.6 pg (27.0-31.0); Mean Platelet Volume 7.4 fL (7.4-10.4); Platelet Count 129 thou/uL (130-400); RBC Distribution Width 12.4 % (11.5-14.5); Red Blood Cell (RBC) Count 3.39 mill/uL (4.70-6.10); White Blood Cell (WBC) Count 4.6 thou/uL (4.8-10.8)
[2022-04-13 05:32] LABS: Anion Gap 12 mmol/L (10-20); BUN (Urea Nitrogen) 17 mg/dL (8.4-25.7); Calc. Creatinine Clearance 60 mL/min (70-130); Calcium 8.8 mg/dL (7.8-10.44); Carbon Dioxide 23 mmol/L (23-31); Cardiac Risk 2.7 (Less than 4.5); Chloride 112 mmol/L (98-107); Cholesterol 103 mg/dl (< 200 Desired); Estimated GFR 86; Glucose 94 mg/dL (83-110); HDL Cholesterol 38 mg/dL (>60 Neg Risk); LDL Cholesterol, Calculated 56 mg/dL; Potassium 3.7 mmol/L (3.5-5.1); Sodium 143 mmol/L (136-145); Triglycerides 47 mg/dL (Less than 150)
[2022-04-13] MEDS ORDERED: Non-Formulary Item 1 EACH (Fluticasone/Umeclidin/Vilanter [Trelegy Ellipta 200-62.5-25] 1 IH SCH (09:00)
[2022-04-13] MEDS ORDERED: Non-Formulary Item 1 EACH (Ipratropium/Albuterol Sulfate [Combivent Respimat] 120 PUFF In INH SCH (09:00)
[2022-04-13] MEDS ORDERED: Famotidine 20 MG TAB PO SCH (09:00)
[2022-04-13] MEDS ORDERED: Apixaban 2.5 MG TAB PO SCH (09:00)
[2022-04-13] MEDS ORDERED: Aspirin 81 mg Enteric Coated Tablet PO SCH (09:00)
[2022-04-13] MEDS ORDERED: Tamsulosin HCl 0.4 MG CAP PO SCH (09:00)
[2022-04-13] MEDS ORDERED: Ipratropium Bromide 0.06% Nasal Inhaler 15ml EA NARE SCH ×2 (09:00→15:00)
[2022-04-13 12:18] VITALS: TEMP 97.9
[2022-04-13 14:54] VITALS: BP 145/80
[2022-04-13] MEDS ORDERED: Ipratropium/Albuterol Sulfate 4 GM AER IH SCH (18:30)
[2022-04-13] MEDS ORDERED: Mometasone 100 MCG/PUFF (1 INHALER) INH SCH (18:30)
[2022-04-13] MEDS ORDERED: Atorvastatin Calcium 40 MG TAB PO SCH (21:00)
== END 2022-04-13 18:11 | disposition home health service (06) ==
LOC: ERS 18:31 → NEURO 20:52
PROVIDERS: ADMIT Internal Medicine; ATTEND Internal Medicine
DX: R53.1 Weakness (principal); R51.9 Headache, unspecified; I48.0 Paroxysmal atrial fibrillation; I25.10 Atherosclerotic heart disease of native coronary artery without angina pectoris; I10 Essential (primary) hypertension; E78.5 Hyperlipidemia, unspecified; J44.9 Chronic obstructive pulmonary disease, unspecified; G89.29 Other chronic pain; M54.50 Low back pain, unspecified; D53.9 Nutritional anemia, unspecified; N40.0 Benign prostatic hyperplasia without lower urinary tract symptoms; I69.351 Hemiplegia and hemiparesis following cerebral infarction affecting right dominant side; Z79.01 Long term (current) use of anticoagulants; Z79.2 Long term (current) use of antibiotics; Z79.82 Long term (current) use of aspirin; Z79.899 Other long term (current) drug therapy; Z88.6 Allergy status to analgesic agent; Z88.8 Allergy status to other drugs, medicaments and biological substances; Z95.1 Presence of aortocoronary bypass graft; Z95.818 Presence of other cardiac implants and grafts; Z20.822 Contact with and (suspected) exposure to COVID-19
CPT/HCPCS: 70450; 70551; 72170; 80048; 80061; 80307; 82550; 83690; 83880; 84443; 84484; 85025; 93005; 97116; 99285; G0378 ×3; U0002; 36415; 80053

== ENCOUNTER 2023-10-25 11:42 | Emergency (ER) | payer MEDICARE, BC ==
[2023-10-25 12:28] LABS: #Basophils Less than 0.03 10x3/uL (0.0-0.2); %Basophils 0.1 % (0.0-1.0); %Eosinophils 0.3 % (0.0-10.0); %Lymphocytes 8.1 % (21.0-51.0); %Neutrophils 74.7 % (42.0-75.0); Hemoglobin 10.2 g/dL (14.0-18.0); Mean Corpuscular HGB CONC 31.9 g/dL (32.0-36.0); Mean Corpuscular Hemoglobin 31.5 pg (27.0-31.0); Mean Corpuscular Volume 98.8 fl (78.0-98.0); Mean Platelet Volume 11.3 fL (7.4-10.4); Platelet Count 144 10x3/uL (130-400); Red Blood Cell (RBC) Count 3.24 mill/uL (4.70-6.10)
[2023-10-25 12:44] LABS: ALT (SGPT) 82 U/L (8-55); AST (SGOT) 27 U/L (5-34); Albumin 3.9 g/dL (3.4-4.8); Alkaline Phosphatase 166 U/L (40-110); Anion Gap 18 mmol/L (10-20); BUN (Urea Nitrogen) 49 mg/dL (8.4-25.7); Bilirubin, Total 1.5 mg/dL (0.2-1.2); Calc. Creatinine Clearance 0 mL/min (70-130); Calcium 10.1 mg/dL (7.8-10.44); Carbon Dioxide 21 mmol/L (23-31); Chloride 107 mmol/L (98-107); Estimated GFR 44; Globulin 3.3 g/dL (2.4-3.5); Glucose 109 mg/dL (83-110); Potassium 4.6 mmol/L (3.5-5.1); Protein, Total 7.2 g/dL (5.8-8.1); Sodium 141 mmol/L (136-145)
[2023-10-25 12:45] LABS: Troponin I Less than 0.010 ng/mL (< 0.028)
[2023-10-25 16:05] LABS: Bacteria/HPF 4+ HPF (None Seen); Bilirubin Negative (Negative); Blood, Urine 3+ (Negative); CAUTI Indications for Culture Dysuria,urgency,freq; Clarity Extra Turbid (Clear); Glucose, Urine (Dipstick) Normal (Negative); Ketone, Urine 60 mg/dL (Negative); Leukocyte 500 Leu/uL (Negative); Nitrite Negative (Negative); Protein, Urine (Dipstick) 200 mg/dL (Neg-Trace); RBC/HPF Greater than 50 HPF (0-3); Specific Gravity, Urine 1.012 (1.002-1.036); Squamous Epithelial None Seen HPF (0-3); Urobilinogen Normal mg/dL (Less than 2); WBC/HPF Greater than 50 HPF (0-3)
[2023-10-25 16:07] LABS: Urine Culture Reflex Yes Yes
== END 2023-10-25 15:07 | disposition home or self-care (01) ==
LOC: ERS 11:42
DX: J18.9 Pneumonia, unspecified organism (principal); R31.9 Hematuria, unspecified; I25.10 Atherosclerotic heart disease of native coronary artery without angina pectoris; I10 Essential (primary) hypertension; J44.9 Chronic obstructive pulmonary disease, unspecified; I48.91 Unspecified atrial fibrillation; Z79.82 Long term (current) use of aspirin; Z79.899 Other long term (current) drug therapy
CPT/HCPCS: 36415; 71045; 80053; 81001; 83880; 84484; 85025; 87077; 87086; 87186; 93005